=== PATIENT | female | born 1960 | race Caucasian/White ===

== ENCOUNTER → 2016-10-04 | Outpatient (CLI) | payer BC ==
--- NOTE | 2016-10-05 20:28 | Diagnostic Imaging Report ---
Bilateral screening mammogram The current study was also evaluated with a Computer Aided Detection (CAD) system. INDICATION: Screening. No current complaints stated on the questionnaire. COMPARISON: 09/20/2015. FINDINGS: The breasts are composed of scattered fibroglandular densities. There are occasional benign-appearing calcifications. Allowing for technique and positional differences, no suspicious change is seen. IMPRESSION: No significant change. ACR BI-RADS Category 2: Benign findings. Result letter will be mailed to the patient. Note: At least 10% of breast cancer is not imaged by mammography. Dictated by: Dictated on workstation # [id number]
== END ==
LOC: RAD 15:27
PROVIDERS: ATTEND Family Medicine
DX: Z12.31 Encounter for screening mammogram for malignant neoplasm of breast (principal)
CPT/HCPCS: 77067

== ENCOUNTER → 2018-10-24 | Outpatient (CLI) | payer BC ==
--- NOTE | 2018-10-25 17:40 | Diagnostic Imaging Report ---
INDICATION: Routine screening. COMPARISON: Prior mammograms from 10/19/2017 and 10/04/2016. EXAMINATION: 2D and 3D bilateral screening mammography was performed with CAD. The current study was also evaluated with a Computer Aided Detection (CAD) system. FINDINGS: Both breasts are primarily involutional. Benign nodule upper outer right breast posterior depth is stable. No new mass or malignant appearing microcalcifications are seen. Axillae are unremarkable. IMPRESSION: No mammographic features suspicious for malignancy are identified. ACR BI-RADS Category 2: Benign findings. Result letter will be mailed to the patient. Note: At least 10% of breast cancer is not imaged by mammography. Dictated on workstation # [id number]
== END ==
LOC: RAD 15:34
PROVIDERS: ATTEND Family Medicine
DX: Z12.31 Encounter for screening mammogram for malignant neoplasm of breast (principal)
CPT/HCPCS: 77067

== ENCOUNTER → 2019-11-12 | Outpatient (CLI) | payer BC ==
--- NOTE | 2019-11-13 10:38 | Diagnostic Imaging Report ---
INDICATION: Routine screening. Comparison is made with prior mammogram 10/24/2018 and 10/19/2017. 2-D and 3-D bilateral screening mammography was performed with CAD. Both breasts are primarily involutional. The parenchymal pattern is stable. No dominant mass or malignant appearing microcalcifications are identified. There are benign calcifications. Axillae are unremarkable. IMPRESSION: BI-RADS Category 2 No mammographic features suspicious for malignancy are identified. ACR BI-RADS Category 2: Benign findings. Result letter will be mailed to the patient. Note: At least 10% of breast cancer is not imaged by mammography. Dictated by: Dictated on workstation # [id number]
== END ==
LOC: RAD 14:33
PROVIDERS: ATTEND Family Medicine
DX: Z12.31 Encounter for screening mammogram for malignant neoplasm of breast (principal)
CPT/HCPCS: 77063; 77067

== ENCOUNTER 2020-09-23 15:45 | Outpatient (RCR) | payer BC ==
[2020-10-18] MEDS ORDERED: SIMV10TA26 PO (15:07)
[2020-10-18] MEDS ORDERED: AMLO-251 PO (15:07)
== END 2020-10-14 08:59 | disposition home or self-care (01) ==
PROVIDERS: ATTEND Family Medicine
DX: M54.16 Radiculopathy, lumbar region (principal)

== ENCOUNTER → 2020-10-18 | Outpatient (CLI) | payer BC ==
[~2020-10-18] VITALS: Ht 165.1 cm; Wt 103.5 kg
[~2020-10-18] MED LIST: AMLO-251 PO; SIMV10TA26 PO
== END | disposition home or self-care (01) ==
LOC: PREOP 05:38
PROVIDERS: ATTEND Surgery
DX: Z01.818 Encounter for other preprocedural examination (principal)

== ENCOUNTER 2020-10-25 10:31 | Day surgery (SDC) | payer BC ==
[~2020-10-25] VITALS: Ht 165.1 cm; Wt 103.5 kg
[2020-10-25 10:35] VITALS: BP 144/92
[2020-10-25] MEDS ORDERED: LACTATED RINGERS 1,000 ML IV STA (10:42)
[2020-10-25] MEDS ORDERED: PROPOFOL INJECTION 50 ML IV ONE ×2 (11:41→12:12)
[2020-10-25 12:30] VITALS: BP 109/63
[2020-10-25 12:35] VITALS: BP 130/83
--- NOTE | 2020-10-25 12:36 | Anesthesia-General Post-Op ---
MAC Patient Condition Mental Status/LOC: Same as Preop Cardiovascular: Satisfactory Nausea/Vomiting: Absent Respiratory: Satisfactory Pain: Controlled Complications: Absent Post Op Complications Complications None Follow Up Care/Instructions Patient Instructions None needed. Anesthesiology Discharge Order Discharge Order Patient is doing well, no complaints, stable vital signs, no apparent adverse anesthesia problems. No complications reported per nursing. NINO PEDROZA CRNA October 25, 2020 12:36
[2020-10-25 12:40] VITALS: BP 130/83
--- NOTE | 2020-10-25 12:51 | Progress Note-Post Operative ---
Post-Operative Progess Note Surgeon (s)/Contact Lens Edge Buffer (s) Surgeon MAYCOL STRONG DO Contact Lens Edge Buffer: none Pre-Operative Diagnosis screening colonoscopy Post-Operative Diagnosis Diverticula Int hemorrhoids Procedure & Operative Findings Date of Procedure 10/25/20 Procedure Performed/Findings After informed consent was obtained, the patient was brought to the endoscopy suite and placed in the bed in the left lateral decubitus position. She was administered IV sedation by the MANUSCRIPT EDITOR, who then monitored her vitals the entire time, heart rate, blood pressure and pulse ox and the scope was inserted, started the colonoscopy. Pushed all the way into about 150 cm to get all the way to cecum, took a picture of the appendiceal orifice, noted the ileocecal valve and then slowly withdrew the scope, insufflating to look circumferentially at the srinivasan starting in the cecum, up the ascending colon to the hepatic flexure, then down the transverse colon to the splenic flexure, into the descending colon. In the descending colon and in the sigmoid, saw some diverticula and took pictures of them. Down the sigmoid and finally into the rectum, retroflexed in the rectal vault, saw some minimal internal hemorrhoids and took a picture of this. The patient tolerated the procedure and she recovered in the endoscopy suite. Anesthesia Type IV sedation by MANUSCRIPT EDITOR Estimated Blood Loss Estimated blood loss (mL): none Specimens/Packing Specimens Removed none MAYCOL STRONG DO October 25, 2020 12:51
--- NOTE | 2020-10-25 12:51 | Endoscopy Discharge Instruct ---
Endo Procedure/Findings Findings 1.: Diverticulosis 2.: Internal Hemorrhoids Discharge Instructions - Activity: You might feel a little sleepy until tomorrow. This is due to the medicine you received to relax you. Until tomorrow, you should: NOT drive a car, operate machinery or power tools. NOT drink any alcoholic beverages. NOT make any important decisions or sign importortant papers. Do not return to work until tomorrow, unless otherwise instructed. Resume previous activities tomorrow. Diet: Start by taking liquids. If you tolerate liquids, advance to solid food. 1.: Colonscopy in 10 years Notify Physician - If you experience excessive bleeding, unusual abdominal pain, fever, or chest pain, contact your doctor immediately. MAYCOL STRONG DO October 25, 2020 12:51
[2020-10-25 12:52] VITALS: BP 125/78
== END 2020-10-25 12:59 | disposition home or self-care (01) ==
LOC: ENDO 10:31
PROVIDERS: ATTEND Surgery
DX: Z12.11 Encounter for screening for malignant neoplasm of colon (principal); K57.30 Diverticulosis of large intestine without perforation or abscess without bleeding; K64.8 Other hemorrhoids; I10 Essential (primary) hypertension; E66.9 Obesity, unspecified; J30.2 Other seasonal allergic rhinitis; Z68.38 Body mass index [BMI] 38.0-38.9, adult; Z90.49 Acquired absence of other specified parts of digestive tract; Z79.899 Other long term (current) drug therapy

== ENCOUNTER → 2020-11-12 | Outpatient (CLI) | payer BC ==
--- NOTE | 2020-11-12 10:02 | Diagnostic Imaging Report ---
Digital mammogram. Bilateral screening This study was compared to the prior exam of 11/12/2019, 10/24/2018 and 10/19/2017. At this time there are no current complaints. The breasts are predominantly fatty. When compared to the prior study there has been no significant change. There is no primary or secondary sign of malignancy noted. Impression: There is no evidence of malignancy. ACR BI-RADS Category 1: Negative. Result letter will be mailed to the patient. Note: At least 10% of breast cancer is not imaged by mammography. Dictated by: Dictated on workstation # [id number]
== END ==
LOC: RAD 08:15
PROVIDERS: ATTEND Family Medicine
DX: Z12.31 Encounter for screening mammogram for malignant neoplasm of breast (principal)
CPT/HCPCS: 77063; 77067

== ENCOUNTER → 2021-11-21 | Outpatient (CLI) | payer BC ==
--- NOTE | 2021-11-22 13:35 | Diagnostic Imaging Report ---
INDICATION: Routine screening. COMPARISON: 11/12/2020 and 11/12/2019. TECHNIQUE: 2D and 3D bilateral screening mammography was performed with CAD. FINDINGS: Both breasts are primarily involutional. A benign nodule in the outer right breast is stable. No mass or malignant-appearing microcalcifications are identified. The axillae are unremarkable. IMPRESSION: No mammographic features suspicious for malignancy are identified. ACR BI-RADS Category 2: Benign findings. Result letter will be mailed to the patient. Note: At least 10% of breast cancer is not imaged by mammography. Dictated by: Dictated on workstation # [id number]
== END ==
LOC: RAD 14:30
PROVIDERS: ATTEND Family Medicine
DX: Z12.31 Encounter for screening mammogram for malignant neoplasm of breast (principal)
CPT/HCPCS: 77063; 77067

== ENCOUNTER → 2022-11-23 | Outpatient (CLI) | payer BC ==
--- NOTE | 2022-11-23 13:49 | Diagnostic Imaging Report ---
INDICATION: Routine screening. Comparison is made with prior mammogram from 11/21/2021 and 11/12/2020. 2-D and 3-D bilateral screening mammography was performed with CAD. Both breasts are primarily involutional. There is asymmetry in breast size, right being smaller. A benign nodule in the outer right breast is stable. No spiculated mass or malignant-appearing microcalcifications are seen. Axillae are unremarkable. IMPRESSION: No mammographic features suspicious for malignancy are identified. ACR BI-RADS Category 2: Benign findings. Result letter will be mailed to the patient. Note: At least 10% of breast cancer is not imaged by mammography. BI-RADS Category 2 Dictated by: Dictated on workstation # [id number]
== END ==
LOC: RAD 10:15
PROVIDERS: ATTEND Family Medicine
DX: Z12.31 Encounter for screening mammogram for malignant neoplasm of breast (principal)
CPT/HCPCS: 77063; 77067